=== PATIENT | male | born 1940 | race Caucasian/White ===

== ENCOUNTER 2018-09-29 11:26 | Emergency (ER) | payer MEDICARE ==
--- NOTE | 2018-09-29 14:11 | ED ---
Upper Extremity Pain - HPI Summary HPI Summary: Pt here w/ skin tear over Lt elbow - tripped yesterday morning while leaving a hotel and fell into the wall/doorway, striking his elbow. Sister cleaned this out with hydrogen peroxide and applied a clean bandage. bleeding controlled since. Sore in the area but denies numbness, tingling, weakness. Tetanus is UTD. HAs been able to use walker to ambulate as usual - uses this as he has issues with balance from progression of Parkinson's disease. - History of Current Complaint Chief Complaint: EDExtremityUpper Stated Complaint: FALL SKIN TEAR TO LEFT ARM PER PATIENT Time Seen by Provider: 09/29/18 12:35 Hx Obtained From: Patient - Allergies/Home Medications Allergies/Adverse Reactions: Allergies Allergy/AdvReac Type Severity Reaction Status Date / Time No Known Allergies Allergy Verified 09/29/18 11:32 PMH/Surg Hx/FS Hx/Imm Hx Previously Healthy: Yes Endocrine/Hematology History: Denies: Hx Anticoagulant Therapy, Hx Unexplained Bleeding Neurological History: Reports: Other Neuro Impairments/Disorders - Parkinson's dz - Immunization History Immunizations Up to Date: Yes Infectious Disease History: No Infectious Disease History: Denies: Hx of Known/Suspected MRSA, Traveled Outside the [place] in Last 30 Days - Social History Occupation: Retired Alcohol Use: Occasionally Hx Substance Use: No Substance Use Type: Reports: None Hx Tobacco Use: No Smoking Status (MU): Never Smoked Tobacco Review of Systems Constitutional: Negative Eyes: Negative ENT: Negative Cardiovascular: Negative Respiratory: Negative Gastrointestinal: Negative Positive: no symptoms reported Positive: Myalgia Skin: Other - skin tear Neurological: Negative Psychological: Normal All Other Systems Reviewed And Are Negative: Yes Physical Exam Triage Information Reviewed: Yes Vital Signs On Initial Exam: Initial Vitals Temp Pulse Resp BP Pulse Ox 98.7 F 82 16 142/79 92 09/29/18 11:29 09/29/18 11:29 09/29/18 11:29 09/29/18 11:29 09/29/18 11:29 Vital Signs Reviewed: Yes Appearance: Positive: Well-Appearing, Cachectic Skin: Positive: Warm, Skin Color Reflects Adequate Perfusion, Other - "C"- shaped skin tear/lac measuring 6cm across and 4mm deep (at deepest - half of wound is 2mm deep at edges) over Lt dorso lateral elbow region - center area of tear reveals skin is partially retracted and purple; distal area of superficial wound has coating of what appears to be healing (yellowish/olivares moist soft tissue that is attached to dermis); no active bleeding Head/Face: Positive: Normal Head/Face Inspection - atraumatic - pt and son who witnessed injury report no head injury occured and pt did not fall to ground, simply into wall, striking elbow. Eyes: Positive: EOMI ENT: Positive: Hearing grossly normal Respiratory/Lung Sounds: Positive: Breath Sounds Present Cardiovascular: Positive: Pulses are Symmetrical in both Upper and Lower Extremities Musculoskeletal: Positive: Strength/ROM Intact, Pain @ - Lt elbow w/ mild TTP Neurological: Positive: Alert, Oriented to Person Place, Time Psychiatric: Positive: Normal - Manuel Coma Scale Best Eye Response: 4 - Spontaneous Best Motor Response: 6 - Obeys Commands Best Verbal Response: 5 - Oriented Coma Scale Total: 15 Procedures - Laceration/Wound Repair 1 Location: upper extremity - Lt lateral/dorsal elbow Length, Depth and Shape: see note for details of wound dimensions Betadine Prep?: No - use antiseptic spray and saline irrigation to clean wound Irrigated w/ Saline (ccs): 1,000 Laceration/Wound Explored: clean Debridement: unneccesary - wound was clean and covered upon exam Sterile Dressing Applied?: Yes - xeroform, sterile gauze wrap, GUY wrap - hemodynamically stable Diagnostics - Vital Signs Vital Signs Temp Pulse Resp BP Pulse Ox 09/29/18 11:29 98.7 F 82 16 142/79 92 - Laboratory Lab Statement: Any lab studies that have been ordered have been reviewed, and results considered in the medical decision making process. Course/Dx - Course Course Of Treatment: Wound is beyond 24 hours old - closing increases risk for infection and skin is thin so repair is doubtful to be effective anyway, especially over this joint which he needs to use for stabilization from falling (already has balance issues and uses walker). Wound cleaned with antiseptic and irrigated - dried and dressed w/ xerform, gauze wrap and GUY. hemodynamically stable. pt tolerated well. Needs close follow-up with wound center - pt is returning to [place] and will contact PCP for referral there. Will also provide short course of abnx to prevent infection - he will fill remaining rx at home. May need surgical intervention if wound does not heal well/develops infection or diseased tissue in the process of healing. XR: no fx, no FB. wound care discussed w/ pt and son. Danger s/sx also reviewed - pt voices understanding. - Diagnoses Provider Diagnoses: Skin tear of left upper extremity Discharge - Sign-Out/Discharge Documenting (check all that apply): Patient Departure Patient Received Moderate/Deep Sedation with Procedure: No - Discharge Plan Condition: Stable Disposition: HOME Prescriptions: Cephalexin CAP* [Keflex CAP*] 500 mg PO BID #17 cap Patient Education Materials: Skin Tear (ED) Referrals: No Primary Care Phys,NOPCP [Primary Care Provider] - Additional Instructions: You have a skin tear that is beyond 24 hours old. Closing this wound may be ineffective due to thin skin and may increase risk of infection due to late closure. Instead your wound was cleaned with antiseptic, irrigated well and covered with Xeroform dressing along with gauze padding and an Guy wrap. It is advised that you change your dressing daily in the same fashion - apply fresh Xeroform, fresh gauze and you may reuse her Guy wrap as long as it is not soiled. Rest, ice and elevate to prevent swelling and aid with pain. Your x-ray does not reveal a fracture or retained foreign body as a result fall therefore you do not need a splint. It is important that you complete the antibiotics provided for you here today and fill the full prescription before you run out of your short supply. This is important for preventing infection. The full antibiotic has been sent to [facility] at [facility] here in [place] however if you are unable to fill it in the [facility] due to insurance issues, please contact her primary care provider and have it filled immediately upon return home. Prescription that is recommended is: Keflex 500 mg 1 tab by mouth twice a day 10 days It is also advised that you follow-up with a wound clinic as soon as you return to [place] either later this week or early next week. Call as soon as possible to schedule an appointment. *If in the meantime you develop acute swelling, streaking, redness, fever, chills, purulent drainage, seek medical attention sooner at the nearest emergency department. - Billing Disposition and Condition Condition: STABLE Disposition: Home
[2018-09-29] MEDS ORDERED: C ephalexin 500MG #6 TAB PREPK 500 MG CAP PO ONE (14:13)
[2018-09-29 15:29] VITALS: BP 150/61
== END 2018-09-29 15:28 | disposition home or self-care (01) ==
LOC: ED 11:26
DX: S41.112A Laceration without foreign body of left upper arm, initial encounter (principal); W22.01XA Walked into wall, initial encounter; Y92.9 Unspecified place or not applicable
CPT/HCPCS: 99282; A9270-GY